=== PATIENT | male | born 1990 | race Caucasian/White ===

== ENCOUNTER 2018-09-22 19:20 | Emergency (ER) | payer BC ==
[2018-09-22 19:55] VITALS: BP 141/78
--- NOTE | 2018-09-22 20:06 | UC ---
Ear Complaint HPI - HPI Summary HPI Summary: Water in left ear after swimming yesterday. muffled hearing. denies pain or fever. nothing makes it better/worse. has tried otc drops w/ no relief. - History of Current Complaint Chief Complaint: UCEar Stated Complaint: LEFT EAR CONCERN Time Seen by Provider: 09/22/18 19:55 Hx Obtained From: Patient Onset/Duration: Sudden Onset Pain Intensity: 0 Aggravating Factors: Nothing Alleviating Factors: Nothing - Allergies/Home Medications Allergies/Adverse Reactions: Allergies Allergy/AdvReac Type Severity Reaction Status Date / Time No Known Allergies Allergy Verified 09/22/18 19:55 Home Medications: Home Medications NK [No Home Medications Reported] 09/22/18 [History Confirmed 09/22/18] PMH/Surg Hx/FS Hx/Imm Hx - Additional Past Medical History Additional PMH: no chronic conditions. - Surgical History Surgical History: None Surgery Procedure, Year, and Place: Jaw surgery at 15 - Social History Alcohol Use: Occasionally Substance Use Type: Marijuana Smoking Status (MU): Never Smoked Tobacco Review of Systems All Other Systems Reviewed And Are Negative: Yes Constitutional: Negative: Fever Skin: Negative: Rash ENT: Positive: Ear Ache, Other - +muffled hearing Neurological: Negative: Headache Physical Exam Triage Information Reviewed: Yes Appearance: Well-Appearing Vital Signs: Initial Vital Signs Temp 98.7 F 09/22/18 19:50 Pulse 55 09/22/18 19:50 Resp 16 09/22/18 19:50 BP 141/78 09/22/18 19:50 Pulse Ox 100 09/22/18 19:50 Vital Signs Reviewed: Yes ENT: Positive: TMs normal - R side, Other - L ear full fealing Neck: Positive: Supple Ear Complaint Course/Dx - Course Course Of Treatment: IMpacted cerumen in L ear after swimming. No evidence of L OE, no indication for antibx. Ear was irrigated and flushed w/ no complications and symptoms improved. - Differential Dx/Diagnosis Differential Diagnosis/HQI/PQRI: Otitis Externa, Trauma, Other Provider Diagnosis: Impacted cerumen of left ear Discharge - Sign-Out/Discharge Documenting (check all that apply): Patient Departure All imaging exams completed and their final reports reviewed: No Studies - Discharge Plan Condition: Good Disposition: HOME Patient Education Materials: Otitis Externa (ED) Referrals: No Primary Care Phys,NOPCP [Primary Care Provider] - Additional Instructions: if worsening please follow up with provider. - Billing Disposition and Condition Condition: GOOD Disposition: Home
== END 2018-09-22 20:25 | disposition home or self-care (01) ==
LOC: UCCORT 19:20
DX: H61.22 Impacted cerumen, left ear (principal)
CPT/HCPCS: 99202; G0463

== ENCOUNTER 2018-10-24 13:48 | Emergency (ER) | payer BC ==
[2018-10-24 14:22] VITALS: BP 132/66
--- NOTE | 2018-10-24 14:39 | UC ---
Ear Complaint HPI - HPI Summary HPI Summary: 28-year-old male comes in with a chief complaint of both ears being clogged. Yesterday he was swimming in a river. He did swim as deep is 15 feet. Afterwards he felt pressure in his sinuses and also in his years. He has decreased hearing in the right ear. He had no specific barotrauma. Sinus pressure has decreased today. No fevers or chills no sinusitis or upper respiratory tract infection symptoms. - History of Current Complaint Chief Complaint: UCEar Stated Complaint: BILATERAL EAR PAIN Time Seen by Provider: 10/24/18 14:29 Pain Intensity: 0 - Allergies/Home Medications Allergies/Adverse Reactions: Allergies Allergy/AdvReac Type Severity Reaction Status Date / Time No Known Allergies Allergy Verified 10/24/18 14:18 PMH/Surg Hx/FS Hx/Imm Hx Previously Healthy: Yes - Surgical History Surgical History: Yes Surgery Procedure, Year, and Place: Jaw surgery at 15 - Family History Known Family History: Positive: Non-Contributory - Social History Alcohol Use: Occasionally Substance Use Type: None Smoking Status (MU): Never Smoked Tobacco Review of Systems All Other Systems Reviewed And Are Negative: Yes Constitutional: Positive: Negative Skin: Positive: Negative Eyes: Positive: Negative ENT: Positive: Ear Ache, Sinus Pain/Tenderness Respiratory: Positive: Negative Cardiovascular: Positive: Negative Gastrointestinal: Positive: Negative Motor: Positive: Negative Neurovascular: Positive: Negative Musculoskeletal: Positive: Negative Neurological: Positive: Negative Psychological: Positive: Negative Is Patient Immunocompromised?: No Physical Exam Triage Information Reviewed: Yes Appearance: Well-Appearing, No Pain Distress, Well-Nourished Vital Signs: Initial Vital Signs Temp 98.4 F 10/24/18 14:18 Pulse 58 10/24/18 14:18 Resp 16 10/24/18 14:18 BP 132/66 10/24/18 14:18 Pulse Ox 100 10/24/18 14:18 Vital Signs Reviewed: Yes Eye Exam: Normal Eyes: Positive: Conjunctiva Clear ENT: Positive: Pharynx normal, TM dull - LEFT, Other - Right cerumen impaction and TM not visualized. There is cerumen in the left ear canal however I was able to see the TM which is not erythematous but it is dull. No tenderness to palpation of the tragus I. Ear Complaint Course/Dx - Course Course Of Treatment: Ears irrigated by nursing with all the wax having been removed. - Differential Dx/Diagnosis Provider Diagnosis: Impacted cerumen of right ear Discharge - Sign-Out/Discharge Documenting (check all that apply): Patient Departure All imaging exams completed and their final reports reviewed: No Studies - Discharge Plan Condition: Stable Disposition: HOME Patient Education Materials: Cerumen Impaction (ED) Referrals: [facility] [place] [facility] [Outside] Additional Instructions: FOLLOW UP WITH YOUR DOCTOR IF NOT COMPLETELY IMPROVED. GET REEVALUATED SOONER IF WORSE OR ANY QUESTIONS OR CONCERNS. - Billing Disposition and Condition Condition: STABLE Disposition: Home
== END 2018-10-24 15:03 | disposition home or self-care (01) ==
LOC: UCCORT 13:48
DX: H61.21 Impacted cerumen, right ear (principal)
CPT/HCPCS: 99213; G0463

== ENCOUNTER 2018-10-27 09:32 | Emergency (ER) | payer BC ==
[2018-10-27 09:45] VITALS: BP 120/70
--- NOTE | 2018-10-27 10:06 | ED ---
Throat Pain/Nasal Congestion - HPI Summary HPI Summary: 28 yr old with the complaint of right ear feels clogged. The patient has had feeling that ear is plugged. He had the ear irrigated a few days ago, but the ear still feels plugged. He denies fever, chills. He states he does have seasonal allergies. - History of Current Complaint Chief Complaint: UCEar Time Seen by Provider: 10/27/18 09:55 - Allergies/Home Medications Allergies/Adverse Reactions: Allergies Allergy/AdvReac Type Severity Reaction Status Date / Time No Known Allergies Allergy Verified 10/27/18 09:45 PMH/Surg Hx/FS Hx/Imm Hx Endocrine/Hematology History: Denies: Hx Diabetes, Hx Thyroid Disease Cardiovascular History: Denies: Hx Hypertension Respiratory History: Denies: Hx Asthma, Hx Chronic Obstructive Pulmonary Disease (COPD) GI History: Denies: Hx Ulcer - Surgical History Surgery Procedure, Year, and Place: Jaw surgery at 15 Infectious Disease History: No Infectious Disease History: Denies: Hx Hepatitis, Hx Human Immunodeficiency Virus (HIV), Traveled Outside the in Last 30 Days - Family History Known Family History: Positive: Non-Contributory - Social History Occupation: Employed Full-time Alcohol Use: Occasionally Substance Use Type: Reports: None Smoking Status (MU): Never Smoked Tobacco Review of Systems Positive: Other - ear feels plugged. All Other Systems Reviewed And Are Negative: Yes Physical Exam Triage Information Reviewed: Yes Vital Signs On Initial Exam: Initial Vitals Temp Pulse Resp BP Pulse Ox 98.1 F 59 18 120/70 100 10/27/18 09:41 10/27/18 09:41 10/27/18 09:41 10/27/18 09:41 10/27/18 09:41 Vital Signs Reviewed: Yes Appearance: Positive: Well-Appearing, No Pain Distress Skin: Positive: Warm, Skin Color Reflects Adequate Perfusion Head/Face: Positive: Normal Head/Face Inspection Eyes: Positive: EOMI ENT: Positive: Other - right TM mostly visualized and appears WNL. No perforation. There is accumulated wax anterior right ear drum. Neck: Positive: Nontender Respiratory/Lung Sounds: Positive: Clear to Auscultation, Breath Sounds Present Cardiovascular: Positive: RRR. Negative: Murmur Abdomen Description: Negative: Distended Musculoskeletal: Positive: Strength/ROM Intact Neurological: Positive: Sensory/Motor Intact, Alert, Oriented to Person Place, Time, CN Intact II-III, Normal Gait, Speech Normal Psychiatric: Positive: Normal - Miquel Coma Scale Best Eye Response: 4 - Spontaneous Best Motor Response: 6 - Obeys Commands Best Verbal Response: 5 - Oriented Coma Scale Total: 15 Diagnostics - Vital Signs Vital Signs Temp Pulse Resp BP Pulse Ox 10/27/18 09:41 98.1 F 59 18 120/70 100 - Laboratory Lab Statement: Any lab studies that have been ordered have been reviewed, and results considered in the medical decision making process. Re-Evaluation - Re-Evaluation First Eval Re-Evaluation Time: 10:19 Change: Improved Comment: wax gone, anterior TM is red. No perforation. EENT Course/Dx - Course Course Of Treatment: 28 yr old male with right ear with cerumen present. Irrigate with warm water. The TM is red with OM after wax has been removed. Will Rx with amox. Referral to Dr Fonseca - Diagnoses Provider Diagnoses: Right otitis media, Impacted cerumen Discharge - Sign-Out/Discharge Documenting (check all that apply): Patient Departure All imaging exams completed and their final reports reviewed: No Studies - Discharge Plan Condition: Good Disposition: HOME Prescriptions: Amoxicillin PO (*) [Amoxicillin 500 MG CAP*] 500 mg PO TID #30 cap Patient Education Materials: Ear Infection (ED) Referrals: No Primary Care Phys,NOPCP [Primary Care Provider] - Fili Fonseca MD [Medical Doctor] - 2 Days - Billing Disposition and Condition Condition: GOOD Disposition: Home
== END 2018-10-27 10:30 | disposition home or self-care (01) ==
LOC: UCCORT 09:32
DX: H66.91 Otitis media, unspecified, right ear (principal); H61.21 Impacted cerumen, right ear
CPT/HCPCS: 99213; G0463